=== PATIENT | female | born 1985 | race Hispanic/Latino ===

== ENCOUNTER 2020-09-06 09:15 | Emergency (ER) | payer SELFPAY ==
[~2020-09-06] VITALS: Ht 162.6 cm; Wt 99.8 kg
[2020-09-06 09:18] VITALS: BP 136/62
[2020-09-06 09:38] LABS: APPEARANCE,URINE Turbid (CLEAR); BILIRUBIN,URINE Negative (NEGATIVE); COLOR,URINE Dark Yellow (YELLOW); GLUCOSE, URINE (UA) 500 mg/dL (NEGATIVE); KETONES,URINE Trace mg/dL (NEGATIVE); LEUKOCYTE ESTERASE ,URINE Negative (NEGATIVE); NITRATE,URINE Negative (NEGATIVE); OCCULT BLOOD,URINE Moderate (NEGATIVE); PH,URINE 5.5 (5.0-8.0); PROTEIN,URINE POS 1+ mg/dL (NEGATIVE)
[2020-09-06 09:41] LABS: BASOPHILS % (AUTO) 0.3 % (0.0-5.0); EOSINOPHILS % (AUTO) 5.9 % (0.0-8.0); HEMATOCRIT 38.2 % (36-48); LYMPHOCYTES % (AUTO) 13.2 % (21.0-51.0); MEAN CORPUSCULAR HEMOGLOBIN 25.2 pg (27.0-33.0); MEAN CORPUSCULAR HGB CONC 31.7 g/dL (32.0-36.0); MEAN CORPUSCULAR VOLUME 79.6 fL (79-99); MONOCYTES % (AUTO) 6.2 % (3.0-13.0); NEUTROPHILS % (AUTO) 74.1 % (40.0-77.0); PLATELET COUNT (AUTO) 305 K/uL (130-400); RED CELL DISTRIBUTION WIDTH 13.3 % (11.0-15.5); WHITE BLOOD COUNT (AUTO) 6.1 K/uL (4.8-10.8)
[2020-09-06 09:41] LABS: HCG,QUAL RESULT NEGATIVE (NEGATIVE)
[2020-09-06 09:52] LABS: CREATININE 0.9 mg/dL (0.5-1.5); POTASSIUM 4.1 mmol/L (3.5-5.1)
[2020-09-06 09:54] LABS: AMORPHOUS SEDIMENT,UR Moderate /LPF (None Seen); BACTERIA,URINE Rare /HPF (None Seen); WBC,URINE 0-1 /HPF (0-1)
[2020-09-06 09:56] LABS: ALBUMIN 3.6 g/dL (3.5-5.0); BILIRUBIN,TOTAL 0.5 mg/dL (0.2-1.0); TOTAL PROTEIN, SERUM 8.8 g/dL (6.0-8.3)
[2020-09-06] MEDS ORDERED: KETOROLAC 30MG VIAL (30MG/ML) IV SCH (10:00)
[2020-09-06] MEDS ORDERED: PROCHLORPERAZINE 10MG/2ML INJ IV ONE (10:00)
[2020-09-06] MEDS ORDERED: 0.9%NACL 1000ML 1,000 ML IV SCH (10:00)
[2020-09-06] MEDS ORDERED: FAMOTIDINE 20MG VIAL IV SCH (10:00)
[2020-09-06] MEDS ORDERED: PROCHLORPERAZINE EDISYLATE 5 MG/ML 2 ML VIAL IVP SCH (10:00)
[2020-09-06] MEDS ORDERED: PROCHLORPERAZINE 10MG/2ML INJ ONE (10:26)
[2020-09-06] MEDS ORDERED: ONDANSETRON 4MG INJ ONE (10:28)
[2020-09-06] MEDS ORDERED: ONDANSETRON 4MG INJ IVP SCH (10:30)
[2020-09-06 13:02] VITALS: BP 119/62
[2020-09-06] MEDS ORDERED: PROC5TAB54 PO (13:46)
[2020-09-06] MEDS ORDERED: FAMO-136 PO (13:46)
== END 2020-09-06 14:02 | disposition home or self-care (01) ==
LOC: EDH 09:15
DX: K29.70 Gastritis, unspecified, without bleeding (principal); K80.50 Calculus of bile duct without cholangitis or cholecystitis without obstruction
CPT/HCPCS: 36415; 74176; 80053; 81001; 81025; 83690; 85025; 96374; 96375; 99284; J0780 ×2; J1885; J2405; J3490; J7030

== ENCOUNTER 2024-02-05 04:36 | Emergency (ER) | payer OTHER ==
[~2024-02-05] VITALS: Ht 157.5 cm; Wt 103.4 kg
[~2024-02-05 04:36] MED LIST: FAMO-136 PO; PROC5TAB54 PO
--- NOTE | 2024-02-05 05:15 | NUR ---
LIDOCAINE PATCH WILL BE APPLIED AFTER X RAY RESULTS
--- NOTE | 2024-02-05 05:15 | NUR ---
MEDICATION DELAY DUE TO PT WITH RADIOLOGY
--- NOTE | 2024-02-05 05:17 | ERN ---
ED Note History of Present Illness Stated Complaint: SLIP AND FALL Chief Complaint: Mechanical Fall Time Seen by MD: 04:40 Dictation: 38-year-old female morbid obesity who presented to the ER after sustaining a fall at work. Patient states that her badge fall in the floor and when she was trying to catch it she slipped and fell. She is complaining of left arm pain and left knee pain, as well pain in the right hand. She denied loss of consciousness. Allergies: Coded Allergies: No Known Allergies (Unverified Allergy, Unknown, 09/06/20) Home Meds Active Scripts Cyclobenzaprine HCl (Cyclobenzaprine HCl) 7.5 Mg Tablet, 5 MG PO TIDP for 3 Days, #10 TAB Prov:NORA HOFFMAN MD 02/05/24 Lidocaine (Lidocaine Pain Relief) 4 % Adh..patch, 1 PATCH TP DAILY for 5 Days, #10 PATCH 0 Refills Prov:NORA HOFFMAN MD 02/05/24 Acetaminophen (Tylenol) 500 Mg Tab, 1 TAB PO Q6HPRN PRN for pain or fever for 15 Days, #25 TAB 0 Refills Prov:NORA HOFFMAN MD 02/05/24 Ibuprofen (Ibuprofen) 600 Mg Tablet, 1 TAB PO TID for pain for 5 Days, #20 TAB 0 Refills with food Prov:NORA HOFFMAN MD 02/05/24 Prochlorperazine Maleate (Compazine) 5 Mg Tab, 5 MG PO TID, #60 TAB Prov:BRIDGET COREY MD 09/06/20 Famotidine (Pepcid) 20 Mg Tablet, 20 MG PO BID, #60 TAB Prov:BRIDGET COREY MD 09/06/20 Past Medical History Past Medical History: No Pertinent History Surgical History: None LMP: Jan 22, 2024 Review of System Dictation NEGATIVE EXCEPT PER HPI Constitutional: Negative for fever,chills, and weight loss Eyes: Negative for injury, pain,redness, and discharge ENT: Negative for injury,pain or swelling Cardiovascular: denies chest pain, palpitations, and edema Respiratory: Negative for shortness of breath, cough, and wheezing, Abdomen/GI: Negative for abdominal pain, nausea, vomiting, diarrhea, and constipation Back: Negative for injury and pain : Negative for injury, bleeding and discharge MS/Extremity: Reports pain to the left arm and left knee, right hand pain Skin: Negative for rash, and discoloration Neuro: Negative for headache, weakness, numbness, tingling, and seizure Psych: Negative for suicide ideation, homicidal ideation, and hallucinations Initial Vital Sign VS Vital Signs Date Time Temp Pulse Resp B/P (MAP) Pulse Ox O2 Delivery O2 Flow Rate FiO2 02/05/24 04:37 97.2 79 16 124/69 100 Room Air 02/05/24 06:28 0 21 Physical Exam Dictation General: awake, alert, NAD Head/Face: Normocephalic, atraumatic Eyes: PERRL, EOMI, vision at baseline ENT: oral cavity clear, TMs clear, no signs of infection Neck: Trachea midline, supple, no nuchal rigidity Cardiovascular: RRR, normal S1/S2, No MRGs, no JVD Respiratory: CTAB, no respiratory distress, No rales or wheezes Abdomen: Soft , no tender Skin: Warm, dry, normal turgor, no rash MS/Extremity: Decreased left arm range of motion due to pain ,no obvious deformity identified Neuro: COAx4, GCS 15, strength 5/5, CN 2-12 intact, normal cerebellar exam, normal gait, Psych: Normal behavior, mood, and affect normal ED Course ED Course Orders Procedure Category Date Status Time Shoulder Comp 2+Vws Lt RAD 02/05/24 Taken 04:55 Forearm 2vws Lt RAD 02/05/24 Taken 04:55 Hand 3+Vws Rt RAD 02/05/24 Taken 04:55 Knee 3vws Lt RAD 02/05/24 Taken 04:55 Acetaminophen 500mg PHA 02/05/24 Complete Tab (Tylenol 500mg T 05:00 Ibuprofen 600 Mg PHA 02/05/24 Complete Tablet (Motrin) 05:00 Lidocaine (Lidocaine PHA 02/05/24 Complete Patch 4%) 05:00 Lidocaine (Lidocaine PHA 02/05/24 Complete Patch 4%) 05:30 Elbow 2vws Lt RAD 02/05/24 Taken 05:15 Humerus 2+Vws Lt RAD 02/05/24 Taken 05:17 Current Medications Medications (Trade) Dose Ordered Sig/Conor Route PRN Reason Start Time Stop Time Status Last Admin Dose Admin Acetaminophen (TYLenol 500MG TAB) 500 mg ONCE ONCE PO 02/05/24 05:00 02/05/24 05:01 DC 02/05/24 05:27 Ibuprofen (moTRIN) 600 mg ONCE ONCE PO 02/05/24 05:00 02/05/24 05:01 DC 02/05/24 05:27 Lidocaine (Lidocaine Patch 4%) 1 each ONCE ONCE TP 02/05/24 05:00 02/05/24 05:01 DC 02/05/24 06:24 Lidocaine (Lidocaine Patch 4%) 2 each ONCE ONCE TP 02/05/24 05:30 02/05/24 05:31 DC 02/05/24 06:24 Vital Signs Date Time Temp Pulse Resp B/P (MAP) Pulse Ox O2 Delivery O2 Flow Rate FiO2 02/05/24 06:28 97.5 72 16 132/83 100 Room Air* 0 21 02/05/24 04:37 97.2 79 16 124/69 100 Room Air Medical Decision Making MDM 38-year-old female morbid obesity who presented to the ER after sustaining a fall and fell on her right hand and consequently on her left arm and knee. Complaining of pain in those areas of body. Possible left shoulder dislocation Possible elbow dislocation/fracture Possible knee fracture Possible right arm fracture Imagings x-ray for those areas mentioned above to be performed. I reviewed old imagings by myself I did not see any acute abnormalities. There is a final report pending to be released by Radiology Department. Tylenol/Motrin given for pain Lidocaine patch ordered Patient will be discharged home with pain medication. DX & DISP Disposition: Discharge Departure Impression: Primary Impression: Fall Additional Impressions: Knee pain, left, Shoulder pain, left, Elbow pain, left, Hand joint pain, Right hand pain Condition: Stable Scripts Cyclobenzaprine HCl (Cyclobenzaprine HCl) 7.5 Mg Tablet 5 MG PO TIDP for 3 Days, #10 TAB Prov: NORA HOFFMAN MD 02/05/24 Lidocaine (Lidocaine Pain Relief) 4 % Adh..patch 1 PATCH TP DAILY for 5 Days, #10 PATCH 0 Refills Prov: NORA HOFFMAN MD 02/05/24 Acetaminophen (Tylenol) 500 Mg Tab 1 TAB PO Q6HPRN PRN for pain or fever for 15 Days, #25 TAB 0 Refills Prov: NORA HOFFMAN MD 02/05/24 Ibuprofen (Ibuprofen) 600 Mg Tablet 1 TAB PO TID for pain for 5 Days, #20 TAB 0 Refills with food Prov: NORA HFOFMAN MD 02/05/24 Additional Instructions: RETURN TO ER FOR ANY ACUTE OR WORSENING SYMPTOMS. FOLLOW-UP IN 1-2 DAYS WITH PRIMARY PROVIDER FOR RECHECK OF TODAY'S SYMPTOMS. Referrals: SELF,REFERRAL (PCP) NORA HOFFMAN MD Feb 05, 2024 05:17
[2024-02-05] MEDS: acetaMINOPHEN 500 MG TABLET PO ONE (05:27)
[2024-02-05] MEDS: ibuPROFEN 600 MG TABLET PO ONE (05:27)
[2024-02-05] MEDS ORDERED: LIDO1ADH71 TP (05:53)
[2024-02-05] MEDS ORDERED: ACET-66 PO (05:53)
[2024-02-05] MEDS ORDERED: IBUP-2070 PO (05:53)
[2024-02-05] MEDS: LIDOCAINE 4% ADH..PATCH TP ONE ×2 (06:24)
--- NOTE | 2024-02-05 06:24 | NUR ---
LIDOCAINE PATCH APPLIED TO LEFT KNEE, AND TWO TO LEFT ARM
[2024-02-05] MEDS ORDERED: CYCL7.5T27 PO (06:26)
[2024-02-05 06:28] VITALS: BP 132/83; PULSE 72; RESP 16; TEMP 97.5; O2SAT 100
--- NOTE | 2024-02-05 09:00 | HMCIMG ---
Exam Type: HUMERUS 2+VWS LT Clinical Information: fall Comparison: None Findings: The bone examination is unremarkable. No fractures or dislocations are seen. No radiopaque foreign bodies are noted. Soft tissues are preserved. IMPRESSION: Normal examination.
--- NOTE | 2024-02-05 09:01 | HMCIMG ---
Exam Type: ELBOW 2VWS LT Clinical Information: L ELBOW PAIN Comparison: None Findings: The bone examination is unremarkable. No fractures or dislocations are seen. No radiopaque foreign bodies are noted. Soft tissues are preserved. IMPRESSION: Normal examination.
--- NOTE | 2024-02-05 09:03 | HMCIMG ---
Exam Type: KNEE 3VWS LT Clinical Information: fall Comparison: None Findings and impression: There is question of partial lateral subluxation of the patella. This might be artifactual. The exam is otherwise unremarkable without fractures. Please correlate.
--- NOTE | 2024-02-05 09:03 | HMCIMG ---
Exam Type: FOREARM 2VWS LT Clinical Information: fall Comparison: None Findings: The bone examination is unremarkable. No fractures or dislocations are seen. No radiopaque foreign bodies are noted. Soft tissues are preserved. IMPRESSION: Normal examination.
--- NOTE | 2024-02-05 09:03 | HMCIMG ---
Exam Type: HAND 3+VWS RT Clinical Information: fall Comparison: None Findings: The bone examination is unremarkable. No fractures or dislocations are seen. No radiopaque foreign bodies are noted. Soft tissues are preserved. IMPRESSION: Normal examination.
--- NOTE | 2024-02-05 09:04 | HMCIMG ---
Exam Type: SHOULDER COMP 2+VWS LT Clinical Information: fall Comparison: None FINDINGS: The examination is unremarkable. Specifically, the glenohumeral and acromioclavicular joints are preserved. Visualized portions of the humerus, the scapula, and the clavicle as well as the upper ribcage are unremarkable. No pulmonary pathology is noted in the visualized portions of the upper lobe. The soft tissues are preserved. There are no other gross abnormalities. IMPRESSION: NORMAL EXAMINATION.
== END 2024-02-05 06:38 | disposition home or self-care (01) ==
LOC: EDH 04:36
DX: M25.562 Pain in left knee (principal); M25.512 Pain in left shoulder; M25.522 Pain in left elbow; M79.641 Pain in right hand; Z79.1 Long term (current) use of non-steroidal anti-inflammatories (NSAID); W01.10XA Fall on same level from slipping, tripping and stumbling with subsequent striking against unspecified object, initial encounter; Y93.89 Activity, other specified; Y92.89 Other specified places as the place of occurrence of the external cause; Y99.8 Other external cause status
CPT/HCPCS: 73030; 73060; 73070; 73090; 73130; 73562; 99284